=== PATIENT | female | born 1960 | race Hispanic/Latino ===

== ENCOUNTER → 2017-02-19 | Outpatient (CLI) | payer OTHER ==
--- NOTE | 2017-02-19 11:18 | Diagnostic Imaging Report ---
PROCEDURE:X-RAY UPPER GI SERIES WITH AIR CONTRAST COMPARISON:None. INDICATIONS:GERD FINDINGS:The patient was given air crystals, thick barium and thin barium to drink in upright and prone positions. Multiple images of the esophagus, stomach and duodenum were obtained. The esophagus is normal in appearance without evidence of dysmotility, mucosal irregularity, stricture, hiatal hernia or reflux. The stomach and duodenum are normal without evidence of intrinsic mucosal or extrinsic abnormality. There is no evidence of ulcer or fold thickening. Fluoroscopy time: 1.9 minutes. Total dose: 42.88 mGy CONCLUSION:Normal Upper GI Series. Massimo Turk D.O. Dictated by: Massimo Turk D.O. on 02/19/2017 at 11:27 Electronically approved by: Massimo Turk D.O. on 02/19/2017 at 11:27
== END ==
LOC: DX 07:34
PROVIDERS: ATTEND Family Medicine
DX: K21.9 Gastro-esophageal reflux disease without esophagitis (principal)
CPT/HCPCS: 74246

== ENCOUNTER 2017-05-06 17:51 | Emergency (ER) | payer OTHER ==
[~2017-05-06] VITALS: Ht 152.4 cm; Wt 72.6 kg
[2017-05-06] MEDS ORDERED: ACETAMINOPHEN/CODEINE 300MG - 30MG TAB PO ONE (18:00)
[2017-05-06] MEDS ORDERED: ONDANSETRON HCL 4 MG ORAL DISINTEGRATING TAB PO ONE (18:00)
--- NOTE | 2017-05-06 18:40 | Diagnostic Imaging Report ---
Exam: Head and cervical spine CTs without IV contrast History: Trauma, fall Comparison studies: None Technique: Axial images were obtained from the brain and cervical spine. Coronal and sagittal images reconstructed from the axial data. Intravenous contrast: None Findings: Head CT: Scalp: No abnormalities. Bones: No fractures, blastic or lytic lesions. Extra-axial spaces: No masses. No fluid collections. Brain sulci: Appropriate for age. Ventricles: Normal in size and configuration. No hydrocephalus. Parenchyma: No abnormal densities. No masses, acute hemorrhage, acute or chronic vascular insults. Sellar/suprasellar region: No abnormalities. Craniocervical junction: The foramen magnum is patent. No Chiari one malformation. Incidental findings: Subtle calcified atherosclerosis in the carotid siphons. Cervical spine CT: Fractures: No acute fractures. Corticated ossification posterior to the C7 spinous process may reflect chronic avulsed fracture. Soft tissues: No gross abnormalities. Atlantoaxial articulation: Intact. Alignment: Straightened cervical curvature may be positional. Minimal anterolisthesis of C4 on C5 is most likely degenerative in etiology. Cervicomedullary junction: No abnormalities. The foramen magnum is patent. Vertebrae: No infection or neoplasm. Degenerative changes: Varying degrees of mild to moderate facet arthrosis from C2 to C5. No significant canal or foraminal stenosis. IMPRESSION: Head CT: No acute abnormalities. Cervical spine CT: 1. No cervical spine fracture or acute subluxation. 2. Degenerative facet arthrosis from C2 to C5. 3. Cannot adequately evaluate ligament, spinal cord and or vascular abnormalities on the basis of this examination. Signed by: Dr. Christoph Jarrell M.D. on 05/06/2017 6:37 PM
[2017-05-06] MEDS ORDERED: ACETAMINOPHEN 325 MG TAB PO ONE (19:15)
== END 2017-05-06 19:08 | disposition home or self-care (01) ==
LOC: ER 18:14
DX: S00.83XA Contusion of other part of head, initial encounter (principal); W03.XXXA Other fall on same level due to collision with another person, initial encounter; Y93.6A Activity, physical games generally associated with school recess, summer camp and children; Y92.007 Garden or yard of unspecified non-institutional (private) residence as the place of occurrence of the external cause
CPT/HCPCS: 70450; 72125; 99283

== ENCOUNTER 2017-09-05 08:31 | Emergency (ER) | payer OTHER ==
[~2017-09-05] VITALS: Ht 152.4 cm; Wt 74.4 kg
[2017-09-05] MEDS ORDERED: HYDROCODONE/APAP 10MG-325MG TAB PO ONE (09:00)
[2017-09-05] MEDS ORDERED: NAPROXEN250 MG PO (09:13)
--- NOTE | 2017-09-05 09:51 | Diagnostic Imaging Report ---
Exam: Left tibia/fibulaCT without contrast. History: Pain. Trauma. Comparison:None Technique: Utilizing a 64-slice multidetector CT, axial imaging was performed through the left tibia/fibula without IV contrast. Multiplanar reformation was performed. Findings: There is a strain/partial tear involving the posterior medial mid calf musculature with partial tearing of the adjacent fascia between the medial gastrocnemius and soleus muscles. There is an associated hematoma best seen on series 3 image 81 which measures approximately 7.0 x 1.3 x 1.6 cm. This is also seen on sagittal reformatted image 19 and coronal reformatted image 40 through 47. There is adjacent soft tissue edema. There is no acute fracture, subluxation or avascular necrosis. No radiopaque foreign body is seen. Impression: Strain/partial tear involving the posterior medial calf musculature with partial tearing of the adjacent fascia between the medial gastrocnemius and soleus muscles. There is an associated hematoma best seen on series 3 image 81 which measures approximately 7.0 x 1.3 x 1.6 cm Signed by: Dr. Silviano Coe M.D. on 09/05/2017 9:48 AM
== END 2017-09-05 11:04 | disposition home or self-care (01) ==
LOC: ER 08:31
DX: M79.662 Pain in left lower leg (principal); R26.2 Difficulty in walking, not elsewhere classified; S86.812A Strain of other muscle(s) and tendon(s) at lower leg level, left leg, initial encounter; X50.9XXA Other and unspecified overexertion or strenuous movements or postures, initial encounter; E05.90 Thyrotoxicosis, unspecified without thyrotoxic crisis or storm
CPT/HCPCS: 99284